=== PATIENT | male | born 2000 | race Two or more races ===

== ENCOUNTER 2021-05-06 17:44 | Emergency (ER) | payer OTHER ==
[~2021-05-06] VITALS: Ht 177.8 cm; Wt 57.6 kg
[2021-05-06] MEDS ORDERED: BENZONATATE200 M1 PO (21:14)
== END 2021-05-06 21:32 | disposition home or self-care (01) ==
LOC: ER 17:44
DX: J35.01 Chronic tonsillitis (principal); J31.2 Chronic pharyngitis; B34.9 Viral infection, unspecified; Z11.52 Encounter for screening for COVID-19

== ENCOUNTER 2021-10-01 18:54 | Emergency (ER) | payer OTHER ==
[~2021-10-01] VITALS: Ht 177.8 cm; Wt 61.2 kg
[~2021-10-01 18:54] MED LIST: BENZONATATE200 M1 PO
[2021-10-01] MEDS ORDERED: OSEL75CA PO (22:08)
== END 2021-10-01 22:26 | disposition home or self-care (01) ==
LOC: ER 18:54
DX: J10.1 Influenza due to other identified influenza virus with other respiratory manifestations (principal); J03.90 Acute tonsillitis, unspecified; Z20.822 Contact with and (suspected) exposure to COVID-19

== ENCOUNTER 2025-07-28 06:14 | Emergency (ER) | payer OTHER ==
[~2025-07-28] VITALS: Ht 177.8 cm; Wt 60.3 kg
[~2025-07-28 06:14] MED LIST changes: +OSEL75CA PO
[2025-07-28] MEDS ORDERED: LACTULOSE 10 G/15 ML ML PO STA (07:56)
[2025-07-28] MEDS ORDERED: MINERAL OIL 30 ML BLIST.PACK PO STA (07:57)
[2025-07-28] MEDS ORDERED: MAG HYDROX/ALUMINUM HYD/SIMETH 30 ML BLIST.PACK PO STA (07:57)
[2025-07-28] MEDS ORDERED: MAG HYDROX/ALUMINUM HYD/SIMETH 30 ML BLIST.PACK PO ONE (08:01)
[2025-07-28] MEDS ORDERED: MINERAL OIL 30 ML BLIST.PACK ONE (08:02)
[2025-07-28] MEDS ORDERED: LACTULOSE 20 G/30 ML BLIST.PACK ONE (08:02)
[2025-07-28] MEDS ORDERED: MIRALAX17 GM PO (08:10)
== END 2025-07-28 08:22 | disposition home or self-care (01) ==
LOC: ER 06:14
DX: K59.00 Constipation, unspecified (principal)